=== PATIENT | female | born 1965 | race Caucasian/White ===

== ENCOUNTER → 2018-01-05 08:42 | Outpatient (CLI) | payer BC, SELFPAY ==
--- NOTE | 2018-01-05 08:50 | XR_ITS ---
XR knee RT 3V HISTORY: Posttraumatic pain ITS.REASON: TRAUMATIC ECCHYMOSIS RT KNEE ORDERING PHYSICIAN: Madai Crane PATIENT AGE: 52 years COMPARISON: None FINDINGS: No fracture or dislocation. No lytic or blastic change. Normal mineralization. No significant arthritic changes evident. No other significant findings IMPRESSION: Negative Knee
== END ==
PROVIDERS: PCP Nurse Practitioner; Visit Provider Nurse Practitioner
DX: S80.01XA Contusion of right knee, initial encounter (principal)
CPT/HCPCS: 73562

== ENCOUNTER → 2020-01-03 12:39 | Outpatient (CLI) | payer BC, SELFPAY ==
[2020-01-03 17:18] LABS: Coronavirus 19 IgG Antibody Negative (Negative); Coronavirus 19 IgM Antibody Negative (Negative)
[2020-01-04 13:30] LABS: Covid-19 Nasal PCR Sendout Lex NOT DETECTED
== END ==
PROVIDERS: PCP Family Medicine; Visit Provider Family Medicine
DX: Z03.818 Encounter for observation for suspected exposure to other biological agents ruled out (principal)
CPT/HCPCS: 36415; 86328; U0004

== ENCOUNTER → 2020-01-06 09:39 | Outpatient (CLI) | payer BC, SELFPAY ==
--- NOTE | 2020-01-06 09:54 | XR_ITS ---
PROCEDURE: XR CHEST 2V Patient Age:54Y CLINICAL HISTORY: COUGH dyspnea short of breath former smoker. COMPARISON: ABDPELW/O CT ABD PELVIS W/O CONTRAST from 01/08/2015 FINDINGS: The lungs appear well expanded perhaps mildly hyperexpanded.Tendency to slight mild pectus excavatum noted on lateral view may contribute to the this appearance as well as contributing to some minimal density along the right heart border and towards the right cardiophrenic angle. (-this appearance also evident/similar to the CT abdomen January 2015 which included lung bases). Today's lateral view shows lungs to be clear in these regions. Ribs appear and chest wall grossly intact otherwise T-spine otherwise is unremarkable Lungs are clear with no focal infiltrate. The no pneumonia. No pleural effusion. No pneumothorax. Old granulomatous disease evident: With a few tiny scattered calcified granulomas right lower lung and a bilobed partially calcified granuloma at the left upper lobe of small calcified hilar nodes most evident at right kemi The Kemi and mediastinal structures otherwise unremarkable. The heart is normal size. With normal pulmonary vascularity. IMPRESSION: Lungs clear. Nothing definitely acute Old granulomatous disease. Dictated by: Nolan Pepe MD 01/06/2020 10:56 Electronically signed by Nolan Pepe MD in [place] 01/06/2020 10:56
[2020-01-06 11:26] LABS: Basophils # 0.1 K/mm3 (0-0.2); Eosinophils # 0.4 K/mm3 (0.0-0.4); Eosinophils % 4.2 % (0.1-12.0); Hematocrit 40.2 % (37.0-47.0); Hemoglobin 13.5 g/dL (12.2-16.2); Lymphocytes % 35.5 % (10-50); Mean Corpuscular HGB Conc 33.5 g/dL (31.8-35.4); Mean Corpuscular Hemoglobin 28.4 pg (27.0-31.2); Mean Corpuscular Volume 84.8 fl (81-99); Mean Platelet Volume 8.1 fl (7.4-10.4); Monocytes # 0.3 K/mm3 (0.1-1.0); Monocytes % 3.3 % (1.7-9.3); Neutrophils # 4.8 K/mm3 (1.8-7.8); Neutrophils % 56.1 % (37.0-80.0); Platelet Count 362 K/mm3 (142-424); Red Blood Count 4.74 M/mm3 (4.20-5.40); Red Cell Distribution Width 13.5 % (11.5-17.5); White Blood Count 8.5 K/mm3 (4.8-10.8)
== END ==
PROVIDERS: PCP Family Medicine; Visit Provider Family Medicine
DX: R05 Cough (principal)
CPT/HCPCS: 36415; 71046; 85025